=== PATIENT | male | born 1980 | race Caucasian/White ===

== ENCOUNTER 2024-01-13 07:24 | Inpatient (IN) | payer MEDICAID ==
[~2024-01-13] VITALS: Ht 177.8 cm; Wt 78.2 kg
[2024-01-13 08:02] LABS: BILIRUBIN,URINE MODERATE (Neg); CLARITY,URINE CLOUDY (Clear); COLOR,URINE YELLOW (Yellow); GLUCOSE, URINE NEGATIVE (Neg); KETONES,URINE NEGATIVE (Neg); LEUKOCYTE ESTERASE ,URINE NEGATIVE (Neg); NITRITES, URINE NEGATIVE (Neg); OCCULT BLOOD,URINE NEGATIVE (Neg); PH,URINE 5.5 (4.8-8.0); PROTEIN,URINE NEGATIVE (Neg)
[2024-01-13 08:06] LABS: UA COLLECTION TYPE CLN CATCH MIDSTREAM
[2024-01-13 08:07] LABS: HYALINE CASTS 0-3 /LPF (NEGATIVE); MUCUS STRANDS MANY /LPF (Neg); SQUAMOUS EPITHELIAL CELL,UR MODERATE /LPF (FEW)
[2024-01-13 08:08] LABS: BACTERIA,URINE FEW /HPF (Neg); RBC,URINE 0-2 /HPF (0-2)
[2024-01-13 08:11] LABS: URINE AMPHETAMINE SCREEN NEGATIVE (Neg); URINE BARBITUATE SCREEN NEGATIVE (Neg); URINE BENZODIAZEPINES SCREEN NEGATIVE (Neg); URINE CANNABINOID SCREEN POSITIVE (Neg); URINE COCAINE SCREEN NEGATIVE (Neg); URINE METHADONE SCREEN NEGATIVE (Neg); URINE PHENCYCLIDINE SCREEN NEGATIVE (Neg)
[2024-01-13 08:49] LABS: BASOPHILS % (AUTO) 0.1 % (0-1); EOSINOPHILS % (AUTO) 0.1 % (0-6); HEMATOCRIT 45.4 % (42.0-52.0); HEMOGLOBIN 15.1 g/dl (14.0-17.9); LYMPHOCYTES # (AUTO) 1.6 X10'3 (1.1-4.8); LYMPHOCYTES % (AUTO) 21.9 % (21-51); MEAN CORPUSCULAR HEMOGLOBIN 32.6 PG (27.0-31.0); MEAN CORPUSCULAR HGB CONC 33.1 g/dL (33.0-36.5); MEAN CORPUSCULAR VOLUME 98.3 FL (78-98); MEAN PLATELET VOLUME 6.9 FL (7.4-10.4); MONOCYTES # (AUTO) 0.5 X10'3 (0-0.9); MONOCYTES % (AUTO) 7.6 % (2-12); NEUTROPHILS % (AUTO) 70.3 % (42-75); PLATELET COUNT 266 X10'3 (140-440); RED BLOOD COUNT 4.62 X10'6 (4.70-6.10); RED CELL DISTRIBUTION WIDTH 13.9 % (11.5-14.5); WHITE BLOOD COUNT 7.1 X10'3 (4.5-11.0)
[2024-01-13 09:16] LABS: ALBUMIN 4.1 G/DL (3.4-5.0); ANION GAP 9 (8-16); BLOOD UREA NITROGEN 14 MG/DL (7-18); BUN/CREATININE RATIO 14.4 (10.0-20.0); CALCIUM 8.8 MG/DL (8.5-10.1); CHLORIDE 104 MMOL/L (99-107); CREATININE 0.97 MG/DL (0.60-1.10); ETHANOL < 10 MG/DL (<10); GLUCOSE 95 MG/DL (70-104); POTASSIUM 3.4 MMOL/L (3.5-5.1); SODIUM 140 MMOL/L (135-145); THYROID STIMULATING HORMONE 3.01 ulU/ml (0.34-4.50); TOTAL CARBON DIOXIDE 27.1 MMOL/L (24-32); eCRCL 100 ML/MIN; eGFR 84 ML/MIN
[2024-01-13] MEDS ORDERED: LUMA10.5 PO (12:25)
[2024-01-13] MEDS ORDERED: CAPLYTA PO (12:35)
[2024-01-13] MEDS: DOXYCYCLINE 100MG CAPSULE PO SCH (13:57)
[2024-01-13] MEDS ORDERED: loperamide 2mg capsule PO PRN (14:40)
[2024-01-13] MEDS ORDERED: mag hydrox/Alum hydrox/simeth 30ml oral suspension PO PRN (14:40)
[2024-01-13] MEDS ORDERED: acetaminophen 325mg tablet PO PRN (14:40)
[2024-01-13 19:00] VITALS: BP 157/104; PULSE 80; RESP 16; RESP 20; TEMP 97.2; O2SAT 98
[2024-01-14] MEDS: OLANZapine **IM** 10 mg inj. IM ONE (03:52)
[2024-01-14] MEDS: OLANZapine 5mg rapidly disint. tablet PO ONE ×2 (03:52→22:40)
[2024-01-14 07:00] VITALS: RESP 14; O2SAT 97
[2024-01-14 07:26] LABS: HEMOGLOBIN A1C 5.1 % (4.5-6.2)
[2024-01-14 07:32] LABS: CHOL/HDL RATIO 2.5 (0.00-4.99); CHOLESTEROL 122 MG/DL (0-200); HDL CHOLESTEROL 49 MG/DL (35-60); LDL CHOLESTEROL 58 MG/DL (50-100); TRIGLYCERIDES 47 MG/DL (20-135)
[2024-01-14] MEDS: nicotine 21mg patch - 24 hr TD SCH (07:42)
[2024-01-14 07:59] VITALS: BP 154/98; PULSE 66; RESP 14; TEMP 98.4; O2SAT 97
[2024-01-14] MEDS: PALIPERIDONE 3 MG TAB.ER.24 PO ONE (09:05)
[2024-01-14 16:32] VITALS: BP 140/87; PULSE 78
[2024-01-14] MEDS: amLODIPine 5mg tablet PO SCH (16:41)
[2024-01-14] MEDS: LORazepam 1 MG tablet PO PRN (17:55)
[2024-01-14 19:00] VITALS: RESP 16; O2SAT 99
[2024-01-14] MEDS ORDERED: thiamine 100mg tablet PO ONE (19:45)
[2024-01-14 19:54] VITALS: BP 119/77; PULSE 76; RESP 18; TEMP 98.7; O2SAT 97
[2024-01-14] MEDS: thiamine 100mg tablet PO SCH (20:20)
[2024-01-14] MEDS: folic acid 1mg tablet PO ONE (20:20)
[2024-01-14] MEDS: PALIPERIDONE 3 MG TAB.ER.24 PO SCH (20:21)
[2024-01-14] MEDS: traZODone 50mg tablet PO SCH (20:21)
[2024-01-14 22:39] VITALS: BP 166/93; PULSE 101; RESP 16; TEMP 98.8; O2SAT 96
[2024-01-14] MEDS: NICOTINE POLACRILEX 2 MG LOZENGE BC PRN (22:40)
[2024-01-15] MEDS: haloperidol lactate 5mg/ml inj ONE (01:34)
[2024-01-15] MEDS: diphenhydrAMINE 50 mg/ml inj ONE (01:34)
[2024-01-15] MEDS ORDERED: diazepam inj 5 MG/ML inj. IM ONE (02:10)
[2024-01-15] MEDS: diazepam inj 5 MG/ML inj. IM ONE (02:38)
[2024-01-15 07:00] VITALS: RESP 18; O2SAT 99
[2024-01-15] MEDS: folic acid 1mg tablet PO SCH (07:36)
[2024-01-15] MEDS: LORazepam 1 MG tablet PO SCH ×2 (07:43→13:00)
[2024-01-15 08:00] VITALS: BP 154/93; PULSE 86; RESP 18; TEMP 98.2; O2SAT 99
[2024-01-15] MEDS: acetaminophen 325mg tablet PO PRN (08:03)
[2024-01-15] MEDS: PALIPERIDONE 3 MG TAB.ER.24 PO ONE (09:22)
[2024-01-15 09:45] LABS: ALANINE AMINOTRANSFERASE 32 U/L (12-78); ALBUMIN 3.9 G/DL (3.4-5.0); ALBUMIN/GLOBULIN RATIO 1.2 (1.1-1.5); ALKALINE PHOSPHATASE 54 IU/L (46-116); ANION GAP 11 (8-16); ASPARTATE AMINO TRANSFERASE 27 U/L (10-37); BILIRUBIN,TOTAL 0.7 MG/DL (0.1-1.0); BLOOD UREA NITROGEN 12 MG/DL (7-18); CALCIUM 8.8 MG/DL (8.5-10.1); CHLORIDE 104 MMOL/L (99-107); CREATININE 0.92 MG/DL (0.60-1.10); GLUCOSE 118 MG/DL (70-104); MAGNESIUM 2.1 MG/DL (1.5-2.4); POTASSIUM 3.5 MMOL/L (3.5-5.1); SODIUM 141 MMOL/L (135-145); TOTAL CARBON DIOXIDE 26.3 MMOL/L (24-32); TOTAL PROTEIN 7.2 G/DL (6.4-8.2); eCRCL 106 ML/MIN; eGFR 89 ML/MIN
[2024-01-15 13:40] VITALS: BP 126/65; PULSE 76
[2024-01-15 19:00] VITALS: RESP 20; O2SAT 99
[2024-01-15 19:27] VITALS: BP 141/86; PULSE 87; RESP 20; TEMP 97.6; O2SAT 99
[2024-01-15] MEDS: PALIPERIDONE 3 MG TAB.ER.24 PO SCH (20:34)
[2024-01-16 07:00] VITALS: RESP 15; O2SAT 98
[2024-01-16 08:00] VITALS: BP 124/82; PULSE 81; RESP 15; TEMP 97.5; O2SAT 98
[2024-01-16 19:00] VITALS: RESP 16; O2SAT 98
[2024-01-16 19:06] VITALS: BP 113/74; PULSE 99; RESP 16; TEMP 98.7; O2SAT 98
[2024-01-17 07:00] VITALS: RESP 18; O2SAT 96
[2024-01-17 08:00] VITALS: BP 120/87; PULSE 91; RESP 18; TEMP 98.8; O2SAT 98
[2024-01-17 14:08] VITALS: BP 142/84; PULSE 110; RESP 16; TEMP 98.3; O2SAT 98
[2024-01-17 19:00] VITALS: RESP 18; O2SAT 97
[2024-01-17 20:00] VITALS: BP 134/86; PULSE 115; RESP 18; TEMP 98.8; O2SAT 97
[2024-01-18 07:30] VITALS: BP 106/71; PULSE 97; RESP 16; TEMP 98.6; O2SAT 95; O2SAT 97
[2024-01-18 19:00] VITALS: BP 137/83; PULSE 94; RESP 18; TEMP 98.1; O2SAT 98
[2024-01-18] MEDS: traZODone 50mg tablet PO SCH (21:00)
[2024-01-19 07:32] VITALS: RESP 16; O2SAT 97
[2024-01-19 08:00] VITALS: BP 130/77; PULSE 121; RESP 16; TEMP 97.1; O2SAT 97
[2024-01-19 19:29] VITALS: BP 109/85; PULSE 74; RESP 16; TEMP 98.1; O2SAT 98
[2024-01-20 07:15] VITALS: RESP 16; O2SAT 97
[2024-01-20 08:51] VITALS: BP 124/73; PULSE 116; RESP 18; TEMP 99.3; O2SAT 99
[2024-01-20] MEDS: naproxen sodium 220mg tablet PO PRN (13:38)
[2024-01-20 19:00] VITALS: BP 108/70; PULSE 108; RESP 18; TEMP 97.6; O2SAT 97
[2024-01-20] MEDS: gabapentin 300mg capsule PO SCH (20:49)
[2024-01-20] MEDS: PALIPERIDONE 3 MG TAB.ER.24 PO SCH (20:49)
[2024-01-21 07:00] VITALS: RESP 16; O2SAT 98
[2024-01-21 07:39] VITALS: BP 116/69; PULSE 92; RESP 16; TEMP 98.1; O2SAT 98
[2024-01-21 19:10] VITALS: BP 106/74; PULSE 88; RESP 18; TEMP 98; O2SAT 99
[2024-01-22 07:00] VITALS: RESP 16; O2SAT 97
[2024-01-22 08:00] VITALS: BP 118/74; PULSE 90; RESP 16; TEMP 97.8; O2SAT 97
[2024-01-22] MEDS: nicotine 21mg patch - 24 hr TD ONE (09:07)
[2024-01-22] MEDS: nicotine 7mg patch - 24hr TD ONE (10:33)
[2024-01-22] MEDS: NICOTINE POLACRILEX 2 MG LOZENGE BC PRN (15:01)
[2024-01-22 19:00] VITALS: BP 124/66; PULSE 94; RESP 15; RESP 16; TEMP 97.9; O2SAT 97; O2SAT 98
[2024-01-23 07:00] VITALS: BP 105/67; PULSE 82; RESP 18; TEMP 98.6; O2SAT 98
[2024-01-23] MEDS: nicotine 7mg patch - 24hr TD SCH (07:55)
[2024-01-23] MEDS ORDERED: nicotine 21mg patch - 24 hr TD SCH (08:00)
[2024-01-23] MEDS: paliperidone palmitate inj 234 MG/1.5 ML SYRINGE IM ONE (15:45)
[2024-01-23 19:00] VITALS: RESP 18; O2SAT 99
[2024-01-23 19:30] VITALS: BP 118/76; PULSE 100; RESP 18; TEMP 97.5; O2SAT 99
[2024-01-24 07:30] VITALS: BP 97/67; PULSE 104; RESP 16; TEMP 98.4; O2SAT 98
[2024-01-24] MEDS: magnesium hydroxide 30ml (MOM) UD suspension PO PRN (11:03)
[2024-01-24] MEDS: docusate sod 100mg capsule PO ONE (15:17)
[2024-01-24 19:00] VITALS: RESP 17; O2SAT 98
[2024-01-24 20:00] VITALS: BP 137/112; PULSE 88; RESP 17; TEMP 98.1; O2SAT 98
[2024-01-24] MEDS: docusate sod 100mg capsule PO SCH (20:31)
[2024-01-25] MEDS ORDERED: LORazepam 1 MG tablet PO PRN (07:20)
[2024-01-25 07:30] VITALS: BP 100/71; PULSE 81; RESP 16; TEMP 98; O2SAT 98
[2024-01-25] MEDS: nicotine 21mg patch - 24 hr TD SCH (08:16)
[2024-01-25 19:00] VITALS: RESP 20; O2SAT 99
[2024-01-25 20:00] VITALS: BP 141/85; PULSE 97; RESP 20; TEMP 97.8; O2SAT 98
[2024-01-26 07:05] VITALS: BP 115/74; PULSE 84; RESP 12; TEMP 97.8; O2SAT 98
[2024-01-26] MEDS ORDERED: bisacodyl 10mg suppository rectal RC PRN (13:40)
[2024-01-26 16:19] LABS: BILIRUBIN,URINE NEGATIVE (Neg); CLARITY,URINE CLEAR (Clear); COLOR,URINE STRAW (Yellow); GLUCOSE, URINE NEGATIVE (Neg); KETONES,URINE NEGATIVE (Neg); LEUKOCYTE ESTERASE ,URINE NEGATIVE (Neg); NITRITES, URINE NEGATIVE (Neg); OCCULT BLOOD,URINE NEGATIVE (Neg); PROTEIN,URINE NEGATIVE (Neg); UROBILINOGEN,URINE 0.2 E.U/dL (0.2-1.0)
[2024-01-26 16:20] LABS: UA COLLECTION TYPE NON-SPECIFIED
[2024-01-26 19:33] VITALS: BP 124/74; PULSE 90; RESP 16; TEMP 97.8; O2SAT 97
[2024-01-27 07:00] VITALS: RESP 18; O2SAT 98
[2024-01-27 07:19] VITALS: BP 115/74; PULSE 98; RESP 18; TEMP 97.8; O2SAT 98
[2024-01-27 19:30] VITALS: BP 110/70; PULSE 80; RESP 16; TEMP 97.3; O2SAT 99
[2024-01-28 07:00] VITALS: RESP 16; O2SAT 98
[2024-01-28 08:10] VITALS: BP 121/79; PULSE 70; RESP 16; TEMP 97.1; O2SAT 98
[2024-01-28] MEDS: lactulose 20gm/30ml cup PO PRN (11:53)
[2024-01-28 19:19] VITALS: RESP 16; O2SAT 100
[2024-01-28 20:09] VITALS: BP 121/61; PULSE 86; RESP 16; TEMP 97.9; O2SAT 100
[2024-01-28] MEDS: paliperidone palmitate 156 mg/ml inj.**IM only IM ONE (20:41)
[2024-01-28] MEDS: tamsulosin 0.4mg capsule PO SCH (20:42)
[2024-01-28] MEDS: docusate sod 100mg capsule PO SCH (20:42)
[2024-01-29 07:00] VITALS: BP 100/70; PULSE 90; RESP 16; TEMP 98.4; O2SAT 98
[2024-01-29 19:35] VITALS: RESP 16; O2SAT 100
[2024-01-29 20:23] VITALS: BP 111/75; PULSE 87; RESP 16; TEMP 98.5; O2SAT 100
[2024-01-30 07:00] VITALS: BP 110/67; PULSE 91; RESP 16; TEMP 97.8; O2SAT 98
[2024-01-30 19:00] VITALS: RESP 18; O2SAT 98
[2024-01-30 19:42] VITALS: BP 112/82; PULSE 92; RESP 18; TEMP 98.4; O2SAT 98
[2024-01-31 07:10] VITALS: RESP 16; O2SAT 97
[2024-01-31 08:10] VITALS: BP 117/74; PULSE 73; RESP 16; TEMP 97.5; O2SAT 97
[2024-01-31 19:00] VITALS: RESP 14; O2SAT 99
[2024-01-31 20:13] VITALS: BP 123/77; PULSE 107; RESP 14; TEMP 98.3; O2SAT 99
[2024-02-01 07:04] VITALS: BP 110/74; PULSE 98; RESP 16; TEMP 97.2; O2SAT 97
[2024-02-01 07:30] VITALS: RESP 16
[2024-02-01 20:00] VITALS: BP 128/75; PULSE 108; RESP 14; TEMP 97.8; O2SAT 97
[2024-02-02 07:00] VITALS: RESP 16; O2SAT 98
[2024-02-02 08:00] VITALS: BP 132/75; PULSE 88; RESP 16; TEMP 97.1; O2SAT 98
[2024-02-02] MEDS: gabapentin 300mg capsule PO SCH (15:00)
[2024-02-02 20:00] VITALS: BP 111/71; PULSE 94; RESP 16; TEMP 98.8; O2SAT 99
[2024-02-03 07:59] VITALS: RESP 14; O2SAT 98
[2024-02-03 08:41] VITALS: BP 106/69; PULSE 87; RESP 17; TEMP 98.8; O2SAT 98
[2024-02-03] MEDS ORDERED: magnesium citrate 296ml oral solution PO PRN (11:10)
[2024-02-03] MEDS ORDERED: simethicone 125mg capsule PO PRN (11:15)
[2024-02-03 19:44] VITALS: BP 116/68; PULSE 97; RESP 14; TEMP 98.6; O2SAT 98
[2024-02-03] MEDS: pregabalin 75mg capsule PO SCH (20:42)
[2024-02-04 07:00] VITALS: RESP 16; O2SAT 97
[2024-02-04 07:17] VITALS: BP 118/73; PULSE 88; RESP 16; TEMP 98.2; O2SAT 97
[2024-02-04] MEDS: zinc oxide ointment 30gm tube TP PRN (17:20)
[2024-02-04 19:00] VITALS: RESP 16; O2SAT 98
[2024-02-04 19:37] VITALS: BP 104/78; PULSE 90; RESP 16; TEMP 98.2; O2SAT 98
[2024-02-05 07:00] VITALS: RESP 17; O2SAT 98
[2024-02-05 08:23] VITALS: BP 115/76; PULSE 98; RESP 17; TEMP 98.1; O2SAT 98
[2024-02-05] MEDS ORDERED: tamsulosin capsule PO (17:33)
[2024-02-05] MEDS ORDERED: NOR5T PO (17:33)
[2024-02-05] MEDS ORDERED: TRAZ-251 PO (17:33)
[2024-02-05] MEDS ORDERED: NAPR220T67 PO (17:33)
[2024-02-05] MEDS ORDERED: thiamine tablet PO (17:33)
[2024-02-05] MEDS ORDERED: FOLI1TAB27 PO (17:33)
[2024-02-05] MEDS ORDERED: LYR75C PO ×2 (17:33→17:46)
[2024-02-05] MEDS ORDERED: NICO-907 BC (17:33)
[2024-02-05 19:00] VITALS: RESP 16; O2SAT 99
[2024-02-05 19:07] VITALS: BP 111/67; PULSE 85; RESP 16; TEMP 97.9; O2SAT 99
[2024-02-06 07:00] VITALS: BP 106/70; PULSE 76; RESP 12; TEMP 97.7; O2SAT 98
[2024-02-06 19:00] VITALS: BP 113/69; PULSE 83; RESP 16; TEMP 97.8; O2SAT 99
[2024-02-07 07:30] VITALS: BP 110/79; PULSE 96; RESP 12; TEMP 97.2; O2SAT 98
[2024-02-07 07:47] VITALS: BP_SYST 110; PULSE 96
[2024-02-07 07:49] VITALS: RESP 12; O2SAT 98
== END 2024-02-07 13:27 | disposition home or self-care (01) | DRG 751 ==
LOC: ER 07:25 → ED HOLD 12:46 → ADULT MH 14:16
PROVIDERS: ADMIT Psychiatry & Neurology Psychiatry; ATTEND Psychiatry & Neurology Psychiatry
PROC: GZHZZZZ Group Psychotherapy (ICD-10-PCS; principal; 2024-01-14)
PROC: GZ51ZZZ Individual Psychotherapy, Behavioral (ICD-10-PCS; 2024-01-14)
DX: F29 Unspecified psychosis not due to a substance or known physiological condition (principal); F39 Unspecified mood [affective] disorder; F10.20 Alcohol dependence, uncomplicated; F12.20 Cannabis dependence, uncomplicated; L73.9 Follicular disorder, unspecified; Z20.822 Contact with and (suspected) exposure to COVID-19; K59.00 Constipation, unspecified; M48.061 Spinal stenosis, lumbar region without neurogenic claudication; I10 Essential (primary) hypertension; F17.200 Nicotine dependence, unspecified, uncomplicated; G62.9 Polyneuropathy, unspecified; Z79.899 Other long term (current) drug therapy; F31.9 Bipolar disorder, unspecified; F20.9 Schizophrenia, unspecified; F18.20 Inhalant dependence, uncomplicated
CPT/HCPCS: 36415; 70551; 71045; 72141; 73522; 74018; 80048; 80053; 80061; 80305; 80320; 81001; 81003; 83036; 83735; 84443; 85025; 87081; 87811; 99285; J1200; J1630; J2426; J3490